=== PATIENT | male | born 1965 | race Caucasian/White ===

== ENCOUNTER 2018-09-20 08:48 | Day surgery (SDC) | payer BC ==
[2018-09-19 16:22] VITALS: Ht 182.9 cm; Wt 84.0 kg
[2018-09-20] VITALS (15 sets, daily range): BP systolic 116–155; BP diastolic 59–79; PULSE 60–94; RESP 14–20
[~2018-09-20] VITALS: Ht 182.9 cm; Wt 84.0 kg
[~2018-09-20 08:48] MED LIST: CEFAZOLIN 2 GM/50 ML (PMX) 50 ML IVPB ONE; DESFLURANE 15 MIN ONE; LIDOCAINE 2% (SDV) 5 ML INJ ONE
--- NOTE | 2018-09-20 10:31 | PREAC ---
Date/Time of Note Date/Time of Note DATE: 09/20/18 TIME: 10:30 Anesthesia Eval and Record Evaluation Time Pre-Procedure Interview DATE: 09/20/18 TIME: 10:30 Age 53 Sex male NPO: 8 hrs Preoperative diagnosis R thumb injury Planned procedure R thumb ligament and nerve repair Past Medical History Past Medical History: None Surgery & Anesthesia Issues No known issue Meds Anticoagulation: No Beta Abiodun within 24 hr: No Reason Beta Abiodun not given: Pt. not on B-Abiodun No Active Prescriptions or Reported Meds Meds reviewed: Yes Allergies Coded Allergies: Penicillins (Verified Allergy, Unknown, ANAPHYLACTIC SHOCK, SWELLING, 09/19/18) Tetanus Vaccines and Toxoid (Verified Allergy, Unknown, ANAPHYLACTIC S HOCK,SWELLING, 09/19/18) K\ Allergies Reviewed: Yes Labs/Studies Labs Reviewed: Reviewed by anesthesiologist Result Diagram: 09/20/18 0900 09/20/18 0900 Laboratory Tests 09/20/18 09:00 test: N/A Pre-procedure Exam Last vitals Vital Signs Date Temp Pulse Resp B/P (MAP) Pulse Ox O2 O2 Flow FiO2 Time Delivery Rate 09/20/18 98.3 60 16 116/67 95 Room Air 09:52 (83) Airway: Adequate mouth opening, Adequate thyromental dist Mallampati: Mallampati II Teeth: Normal Lung: Normal Heart: Normal ASA Physical Status ASA physical status: 1 Emergency: None Planned Anesthetic General/MAC: ETT, LMA Pre-operative Attestations Prior to commencing anesthesia and surgery, the patient was re-evaluated, there was verification of: *The patient's identity *The results of appropriate recent lab work and preoperative vital signs *The above evaluation not changing prior to induction *Anesthetic plan, risk benefits, alternative and complications discussed with patient/family; questions answered; patient/family understands, accepts and wishes to proceed. BERRY VELOZ Sep 20, 2018 10:31
[2018-09-20] MEDS ORDERED: BUPIVACAINE 0.25% (MPF) 30 ML INJ ONE (10:47)
[2018-09-20] MEDS ORDERED: FENTAnyl 50 MCG/ML VIAL ONE (10:55)
[2018-09-20] MEDS ORDERED: HYDROmorphONE 1 MG/5 ML IV SYRINGE IV PRN ×3 (11:00)
[2018-09-20] MEDS ORDERED: ALBUTEROL 0.083% (NEB) 2.5 MG/3 ML AMP HHN PRN (11:00)
[2018-09-20] MEDS ORDERED: MEPERIDINE 25 MG INJ IV PRN (11:00)
[2018-09-20] MEDS ORDERED: FENTAnyl 50 MCG/ML VIAL IV PRN ×2 (11:00)
[2018-09-20] MEDS ORDERED: DIPHENHYDRAMINE 50 MG INJ IV PRN (11:00)
[2018-09-20] MEDS ORDERED: ONDANSETRON 4 MG INJ IV PRN (11:00)
[2018-09-20] MEDS ORDERED: METOCLOPRAMIDE 10 MG INJ IV PRN (11:00)
[2018-09-20] MEDS ORDERED: BACITRACIN 0.9 GM OINT ONE (12:37)
[2018-09-20] MEDS ORDERED: SUCCINYLCHOLINE CHLORIDE 100 MG/5 ML SYG IV ONE (13:11)
[2018-09-20] MEDS ORDERED: NEOSTIGMINE 3 MG/3 ML SYRINGE ONE (13:11)
[2018-09-20] MEDS ORDERED: ROCURONIUM 50 MG INJ ONE (13:11)
[2018-09-20] MEDS ORDERED: GLYCOPYRROLATE 0.4 MG INJ ONE (13:11)
[2018-09-20] MEDS ORDERED: PROPOFOL 20 ML ONE (13:11)
[2018-09-20] MEDS ORDERED: CLINDAMYCIN 900 MG/D5W (PMX) 50 ML IVPB ONE (13:11)
[2018-09-20] MEDS ORDERED: LIDOCAINE 100 MG SYRINGE ONE (13:11)
--- NOTE | 2018-09-20 13:37 | OPR ---
Date/Time of Note Date/Time of Note DATE: 09/20/18 TIME: 13:08 Operative Report Procedure Date: Sep 20, 2018 Preoperative Diagnosis 1. Right thumb flexor pollicis longus laceration, zone 2 2. Right thumb radial digital nerve laceration Postoperative Diagnosis 1. Right thumb flexor pollicis laceration, 2. Right thumb radial digital nerve laceration, 3. Right thumb flexor pollicis brevis laceration Operation/Procedure Performed 1. Right thumb flexor pollicis longus repair, zone 2. Right thumb radial digital nerve repair 3. 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 He had a deep laceration on the right thumb and presented with inability to flex at the right thumb IP joint. He also had numbness on the radial border of the thumb. On the left hand he had a superficial laceration over the thumb palmar crease. We discussed surgery for the right thumb to include flexor pollicis longus repair and radial digital digital nerve repair. He understands risks surgery which include but are not limited to those infection, pain, bleeding, ne urovascular injury, stiffness, swelling, decreased range of motion, persistent numbness, tendon rerupture, adhesions, more surgery, weakness, and other anesthesia related risks. He elects to proceed Procedure Description Patient was identified in preoperative holding area. Upper extremities marked. He is brought back to operating room. He is placed supine and general trach anesthesia was induced. 900 mg of IV clindamycin was administered. A nonsterile tourniquet was applied arm. Arm was prepped and draped in usual sterile fashion. Timeout was performed indicating correct patient site and procedure Arm was examined Esmarch and tourniquet was elevated to 250 minutes mercury. The sutures overlying the right thumb were removed first and discarded. The laceration was opened up. It was located just distal to the MP digital crease over the proximal phalanx. Hematoma was evacuated and irrigated with bacitracin imed normal saline. The incision was extended distally on the radial border in the mid axial fashion. Proximally the incision was extended in an oblique fashion across the palm of the thumb proximal to the MP digital crease. The radial digital nerve laceration was identified. There is a mild contusion noted to the ends of the digital digital nerve distally and proximally. A neurolysis was performed. Next attention was turned to identifying the tendon laceration. The distal tendon stump was identified. The proximal tendon had retracted and was not visible in its tunnel. I did encounter an oblique laceration of the flexor pollicis brevis muscle and capsule over the MP capsule. I made a counterincision over the carpal tunnel. A longitudinal incision was carried out over the radial border of the ring finger. Skin was incised sharply. Palmar fascia was divided in line with skin incision. The transcarpal ligament was then released in proximal distal fashion. Median nerve was carefully refracted ulnarly. The flexor pollicis longus was identified in the carpal tunnel and retracted and pulled through this carpal tunnel incision. The end of the tendon was tagged with a 3-0 Ethibond suture. A long curved hemostat was then used to pass the tagged sutures in a proximal to distal fashion from the carpal tunnel, distally, along its tunnel. The 2 suture ends were then retrieved from the distal incision and the tendon was passed. The tendon was then held in place using a 25-gauge needle. The tendon ends were lined up. Of note the A1 shelly and oblique shelly were intact. The laceration was oblique. A 4 strand cruciate repair using a 3-0 Ethibond suture was carried out with apposition of the tendon ends. The IP joint was kept in a flexed position to allow for apposition of the tendon ends during the repair. A 6-0 Prolene was utilized to perform epitendinous repair circumferentially. Passive motion of the thumb was carried out. The proximal portion of the oblique shelly was vented, less than 20% in order to allow for excursion of the tendon without catching. There was no gapping of the tendon noted with passive motion of the thumb. There was methodist of the normal resting flexion position of the thumb. Next attention was turned to flexor pollicis brevis laceration that was noted at the base of the wound. The laceration also involved portion of the capsule over the MP joint. This was repaired using 2-0 Ethibond suture. Next the ends of the digital nerve was sharply transected to excise the area of the contusion. A primary repair was performed using 8-0 nylon suture for epineural repair. 4 sutures were placed. Of note the ulnar digital neurovascular bundle was intact. Tourniquet was then released. Hemostasis achieved with bipolar cautery. Wounds were irrigated with bacitracin impregnated normal saline. Skin was closed with interrupted 5-0 nylon suture. There was brisk capillary refill. He was placed into a well-padded thumb spica and dorsal blocking splint with the wrist in flexion and thumb MP joint in flexion. He was extubated and taken to PACU in stable condition. Plan: He will be immobilized for 4 weeks. ISAAC HARTLEY MD Sep 20, 2018 13:26
[2018-09-20] MEDS ORDERED: OXYCODONE/ACETAMINOPHEN (5/325) TAB PO ONE (15:30)
[2018-09-20] MEDS ORDERED: KETOROLAC 30 MG INJ IV STA (15:50)
[2018-09-20] MEDS ORDERED: ONDANSETRON 4 MG INJ IV STA (15:57)
[2018-09-20] MEDS ORDERED: HYDROmorphONE 1 MG/ML SYG IV ONE (16:00)
--- NOTE | 2018-09-20 17:23 | RADRPT ---
Vent Rate: 58 bpm RR Interval: 1036 msec ND Interval: 180 msec QRS Duration: 96 msec QT Interval: 423 msec QTC Interval: 416 msec P-R-T [place]: 41 - 78 - 69 degrees Sinus rhythm...normal P axis, V-rate 50- 99 ST elev, probable normal early repol pattern...ST elevation, age<55 Electronically Signed By: Chandler Goode
--- NOTE | 2018-09-21 11:44 | PAC ---
Date/Time of Note Date/Time of Note DATE: 09/21/18 TIME: 11:44 Post-Anesthesia Notes Post-Anesthesia Note Last documented vital signs Vital Signs Date Temp Pulse Resp B/P (MAP) Pulse Ox O2 O2 Flow FiO2 Time Delivery Rate 09/20/18 98.9 68 18 125/65 99 17:31 (85) 09/20/18 Room Air 14:01 Activity: WNL Respiratory function: WNL Cardiovascular function: WNL Mental status: Baseline Pain reasonably controlled: Yes Hydration appropriate: Yes Nausea/Vomiting absent: Yes BERRY VELOZ Sep 21, 2018 11:44
== END 2018-09-20 17:43 | disposition home or self-care (01) ==
LOC: SDS 08:48
PROVIDERS: ATTEND Orthopaedic Surgery
DX: S66.021A Laceration of long flexor muscle, fascia and tendon of right thumb at wrist and hand level, initial encounter (principal); S64.31XA Injury of digital nerve of right thumb, initial encounter; W25.XXXA Contact with sharp glass, initial encounter; Y99.8 Other external cause status
CPT/HCPCS: 26356; 64831; 80048; 85025; 93005; J1170; J1885; J2001; J2175; J2405; J2710; J3010; J0690